=== PATIENT | female | born 1980 | race Two or more races ===

== ENCOUNTER 2019-07-23 09:33 | Outpatient (CLI) | payer OTHER ==
[~2019-07-23 09:33] MED LIST: CELEBREX100 MG PO; SKELAXIN800 MG PO
== END 2019-07-23 09:36 | disposition home or self-care (01) ==
LOC: SONOGRAMA 09:33
DX: M12.862 Other specific arthropathies, not elsewhere classified, left knee (principal)

== ENCOUNTER → 2019-07-25 | Outpatient (CLI) | payer OTHER | END | disposition home or self-care (01) | LOC: RAD 11:29 | DX: M46.47 Discitis, unspecified, lumbosacral region (principal); M12.89 Other specific arthropathies, not elsewhere classified, multiple sites ==

== ENCOUNTER 2021-05-03 13:05 | Outpatient (CLI) | payer OTHER | END 2021-05-03 13:31 | disposition home or self-care (01) | LOC: RAD 13:05 | PROVIDERS: ATTEND Obstetrics & Gynecology | DX: R07.89 Other chest pain (principal); W88.0XXA Exposure to X-rays, initial encounter ==

== ENCOUNTER 2022-09-26 09:05 | Outpatient (CLI) | payer OTHER | END 2022-09-26 09:19 | disposition home or self-care (01) | LOC: RAD 09:05 | PROVIDERS: ATTEND Emergency Medicine Pediatric Emergency Medicine | DX: Z01.810 Encounter for preprocedural cardiovascular examination (principal); I10 Essential (primary) hypertension; M54.59 Other low back pain; E03.9 Hypothyroidism, unspecified; E78.9 Disorder of lipoprotein metabolism, unspecified; E55.9 Vitamin D deficiency, unspecified; E11.42 Type 2 diabetes mellitus with diabetic polyneuropathy; F41.9 Anxiety disorder, unspecified ==

== ENCOUNTER 2022-10-08 17:01 | Emergency (ER) | payer OTHER ==
[~2022-10-08] VITALS: Ht 165.1 cm; Wt 57.6 kg
== END 2022-10-08 18:33 | disposition home or self-care (01) ==
LOC: ER 17:01
DX: S60.562A Insect bite (nonvenomous) of left hand, initial encounter (principal); Z91.041 Radiographic dye allergy status; L03.114 Cellulitis of left upper limb

== ENCOUNTER → 2022-10-09 | Emergency (ER) | payer OTHER ==
[~2022-10-09] VITALS: Ht 165.1 cm; Wt 57.6 kg
== END | disposition home or self-care (01) ==
LOC: ER 11:19
DX: M79.642 Pain in left hand (principal); Z91.041 Radiographic dye allergy status

== ENCOUNTER 2023-07-30 19:09 | Emergency (ER) | payer OTHER ==
[~2023-07-30] VITALS: Ht 165.1 cm; Wt 56.2 kg
[2023-07-30] MEDS ORDERED: DUI500 PO (21:22)
== END 2023-07-30 21:28 | disposition home or self-care (01) ==
LOC: ER 19:10
DX: S91.312A Laceration without foreign body, left foot, initial encounter (principal); W45.8XXA Other foreign body or object entering through skin, initial encounter; Y93.89 Activity, other specified; Y92.018 Other place in single-family (private) house as the place of occurrence of the external cause; Z91.041 Radiographic dye allergy status; Z88.6 Allergy status to analgesic agent

== ENCOUNTER 2023-08-09 11:06 | Emergency (ER) | payer OTHER ==
[~2023-08-09] VITALS: Ht 165.1 cm; Wt 57.2 kg
[~2023-08-09 11:06] MED LIST changes: +DUI500 PO
== END 2023-08-09 13:22 | disposition home or self-care (01) ==
LOC: ER 11:07
DX: Z48.02 Encounter for removal of sutures (principal); Z88.6 Allergy status to analgesic agent; Z91.041 Radiographic dye allergy status